=== PATIENT | female | born 1980 | race Caucasian/White ===

== ENCOUNTER 2016-08-29 13:08 | Day surgery (SDC) | payer BC ==
[2016-08-29] VITALS (16 sets, daily range): BP systolic 104–143; BP diastolic 57–86; PULSE 80–96; RESP 14–21; Ht 157.5 cm; Wt 93.0 kg
[~2016-08-29] VITALS: Ht 157.5 cm; Wt 93.0 kg
[2016-08-29] MEDS ORDERED: NO MEDS (13:58)
[2016-08-29 14:20] LABS: BASOPHILS % 0.4 % (0.0-2.0); EOSINOPHILS # 0.1 10^3/ul (0.0-0.5); EOSINOPHILS % 0.5 % (0.0-7.0); HEMATOCRIT 39.5 % (37.0-47.0); HEMOGLOBIN 13.6 g/dl (12.0-16.0); LYMPHOCYTES # 3.1 10^3/ul (0.8-2.9); LYMPHOCYTES % 28.7 % (15.0-51.0); MEAN CORPUSCULAR HEMOGLOBIN 29.9 pg (29.0-33.0); MEAN CORPUSCULAR HGB CONC 34.5 g/dl (32.0-37.0); MEAN CORPUSCULAR VOLUME 86.5 fl (82.0-101.0); MEAN PLATELET VOLUME 9.6 fl (7.4-10.4); MONOCYTE # 0.7 10^3/ul (0.3-0.9); NEUTROPHILS % 64.4 % (39.0-77.0); PLATELET COUNT 262 10^3/UL (140-440); RED BLOOD COUNT 4.57 10^6/ul (4.20-5.40); RED CELL DISTRIBUTION WIDTH 12.9 % (11.5-14.5); UNCORRECTED WBC 10.8 10^3/ul (4.8-10.8); WHITE BLOOD COUNT 10.8 10^3/ul (4.8-10.8)
[2016-08-29 14:29] LABS: INR 0.97; PROTIME 12.9 Sec (12.2-14.2)
[2016-08-29 14:30] LABS: PARTIAL THROMBOPLASTIN TIME 27.7 Sec (25.0-35.0)
[2016-08-29 14:32] LABS: POTASSIUM 3.9 mmol/L (3.5-5.1)
[2016-08-29 14:35] LABS: CALCIUM 10.7 mg/dl (8.4-10.2); CONDITION 1; CREATININE 0.43 mg/dl (0.44-1.00)
--- NOTE | 2016-08-29 16:16 | HPN ---
Date/Time of Note Date/Time of Note DATE: 08/29/16 TIME: 16:16 Interval H&P Admission Note Pt. seen H&P reviewed: No system changes GALO CATALAN MD Aug 29, 2016 16:16
[2016-08-29] MEDS ORDERED: PROPOFOL 20 ML ONE (16:31)
[2016-08-29] MEDS ORDERED: LIDOCAINE 2% (SDV) 5 ML INJ ONE (16:31)
[2016-08-29] MEDS ORDERED: MIDAZOLAM 1 MG/ML 2 ML INJ ONE (16:31)
[2016-08-29] MEDS ORDERED: BUPIVACAINE 0.25%/EPI (SDV) 30 ML INJ ONE (16:33)
[2016-08-29] MEDS ORDERED: FENTAnyl 50 MCG/ML VIAL ONE (16:44)
[2016-08-29] MEDS ORDERED: DEXAMETHASONE 4 MG/ML 1 ML INJ ONE (16:54)
[2016-08-29] MEDS ORDERED: METOCLOPRAMIDE 10 MG INJ ONE (16:54)
[2016-08-29] MEDS ORDERED: CEFAZOLIN 1 GM INJ ONE (16:54)
[2016-08-29] MEDS ORDERED: ONDANSETRON 4 MG INJ ONE (16:54)
[2016-08-29] MEDS ORDERED: MEPERIDINE 25 MG INJ IV PRN (17:00)
[2016-08-29] MEDS ORDERED: FENTAnyl 50 MCG/ML VIAL IV PRN (17:00)
[2016-08-29] MEDS ORDERED: HYDROmorphONE (0.2 MG/ML) 10ML SYG IV PRN ×3 (17:00)
[2016-08-29] MEDS ORDERED: DIPHENHYDRAMINE 50 MG INJ IV PRN (17:00)
[2016-08-29] MEDS ORDERED: ONDANSETRON 4 MG INJ IV PRN (17:00)
[2016-08-29] MEDS ORDERED: OXYCODONE/ACETAMINOPHEN (5/325) TAB PO PRN (17:00)
[2016-08-29] MEDS ORDERED: PROCHLORPERAZINE 10 MG INJ IV PRN (17:00)
--- NOTE | 2016-08-29 17:27 | OPR ---
Date/Time of Note Date/Time of Note DATE: 08/29/16 TIME: 17:23 Operative Report Procedure Date: Aug 29, 2016 Preoperative Diagnosis Soft tissue mass of lower back Postoperative Diagnosis Soft tissue mass of lower back Operation Performed Excision soft tissue mass of lower back 8 cm subfascial Surgeon: GALO CATALAN MD Anesthesia: general Anesthesiologist: JANA PAZ MD Estimated Blood Loss: minimal Specimens Soft tissue mass of lower back Complications: None Pt Condition Post Procedure: stable Disposition: PACU Indications Patient is an obese 36-year-old female who presented to the office complaining of an enlarging and painful soft tissue mass of the lower back. Patient was scheduled for elective excision for symptom relief and definitive pathological diagnosis. All risks and benefits of the procedure including, but not limited to: Wound infection, excessive bleeding, postoperative seroma/ hematoma formation, mass recurrence, etc. were all explained to the patient in full detail. She fully understood and wished to proceed with the procedure. Informed consent was obtained. Operative Findings Soft tissue mass of lower back consistent with lipoma approximately 8 cm Procedure Description The patient was brought to the operating room and placed supine on the operating table. Bilateral sequential compression devices were placed on both lower extremities. A dose of broad-spectrum perioperative intravenous antibiotics was given. After the induction of smooth general anesthesia the patient was positioned in the left lateral decubitus position with the right side up. The mass was located just to the right of the midline in the lower back. It was preoperatively marked and confirmed with the patient in the holding area. The back was then prepped and draped in standard surgical fashion. After performance of the surgical timeout a transverse incision was made over the area of the mass using a 15 blade scalpel after anesthetizing the skin with 0.25% Marcaine with epinephrine. Incision was carried down through the skin and dermis and subcutaneous tissues using a combination of sharp dissection and Bovie electrocautery. The fascia was incised using the Bovie electrocautery. A subfascial lipoma was identified. It was dissected bluntly free of surrounding tissues using Metzenbaum scissors. With the mass circumferentially dissected it was transected at its base using the Bovie electrocautery and passed off the field as specimen. It measured approximately 8 cm in maximal dimension. The wound cavity was then inspected and noted to be hemostatic. Cavity was irrigated with warm normal saline and the irrigant returned clear. At this point the fascia was reapproximated using a running 3-0 Vicryl suture. The wound was then closed in layers using interrupted 3-0 Vicryl sutures for the dermal layer and a running subcuticular 4-0 Monocryl suture for the skin. Further local anesthesia was applied around the skin of the incision site. The patient was then awoken from anesthesia and transported to the recovery room in stable condition. All counts were correct at the end of the case 2. GALO CATALAN MD Aug 29, 2016 17:27
[2016-08-29] MEDS ORDERED: morphine 2 MG INJ IV PRN (17:30)
[2016-08-29] MEDS ORDERED: KETOROLAC 30 MG INJ IV PRN (17:30)
[2016-08-29] MEDS ORDERED: IBUPROFEN 600 MG TAB PO PRN (17:30)
== END 2016-08-29 19:10 | disposition home or self-care (01) ==
LOC: SDS 13:08
PROVIDERS: ATTEND Surgery
DX: D17.1 Benign lipomatous neoplasm of skin and subcutaneous tissue of trunk (principal)
CPT/HCPCS: 11406; 12031; 80048; 84703; 85025; 85610; 85730; 88307; J0690; J1100; J2250; J2405; J2765; J3010; Z7512; Z7610